=== PATIENT | male | born 1975 | race Caucasian/White ===

== ENCOUNTER 2021-12-05 07:34 | Emergency (ER) | payer OTHER, SELFPAY ==
[2021-12-05] VITALS (20 sets, daily range): BP systolic 126–147; BP diastolic 83–103; PULSE 59–77; RESP 9–23; TEMP 36.8; O2SAT 96–100
--- NOTE | ~2021-12-05 | CT_ITS ---
EXAMINATION: CT BRAIN W/O DATE: 12/05/2021 08:50 INDICATION: Confusion, dizziness. Syncope. TECHNIQUE: Computed tomography (CT) of the head was performed without intravenous contrast. The dose- length product was 605.33 mGy-cm. 605 COMPARISON: No prior studies for comparison. FINDINGS: Normal brain parenchymal volume for age. Normal hong-white differentiation. No acute intrac ranial hemorrhage, infarction, mass or mass effect. No ventriculomegaly or midline shift. Midline sagittal images demonstrate a normal corpus callosum, c raniovertebral junction and sella turcica. Basilar cisterns are patent. Paranasal sinuses and mastoids are pneumatized. No depressed skull fractures. IMPRESSION: 1. No acute intracranial abnormality. Reviewed, dictated and finalized at location A.
--- NOTE | 2021-12-05 07:49 | ECG_ITS ---
Measurements Intervals [place] Rate: 63 P: 11 ID: [id number] QRS: 40 QRSD: 102 T: 11 QT: 373 QTc: 384 Interpretive Statements SINUS RHYTHM NORMAL ECG Electronically Signed On 12-05-2021 10:58:28 CDT by Aj Osborn D.O.
[2021-12-05 07:59] LABS: Basophils Percent Auto 0.7 % (0.2-1.2); Eosinophils Absolute Auto 0.1 K/mm3 (0-0.3); Eosinophils Percent Auto 1.8 % (0-4.4); Hematocrit 51.4 % (42.0-52.0); Hemoglobin 17.2 g/dL (14.0-18.0); Immature Granulocyte Absolute 0.01 K/mm3 (0.00-0.031); Immature Granulocyte Percent A 0.2 % (0-0.5); Lymphocytes Absolute Auto 1.67 K/mm3 (0.9-3.2); Lymphocytes Percent Auto 30.9 % (18.3-44.2); Mean Corpuscular HGB Conc 33.5 g/dl (32-36); Mean Corpuscular Hemoglobin 30.9 pg (26-34); Mean Corpuscular Volume 92.4 fl (80-100); Mean Platelet Volume 9.3 fl (7.4-10.4); Monocytes Absolute Auto 0.4 K/mm3 (0.1-0.6); Neutrophils Absolute Auto 3.2 K/mm3 (1.3-6.7); Neutrophils Percent Auto 59.4 % (45.5-73.1); Platelet Count Result 253 k/mm3 (150-375); Red Blood Count 5.56 M/mm3 (4.6-6.20); Red Cell Distribution Width 12.4 % (11.5-14.5); White Blood Count 5.4 K/mm3 (4.5-10.0)
[2021-12-05 08:08] LABS: Alanine Aminotransferase 33 U/L (6-50); Albumin Level 4.2 g/dL (3.5-5.1); Alkaline Phosphatase 68 U/L (38-126); Anion Gap 6 mmol/L (8-16); Aspartate Amino Transferase 32 U/L (17-59); Bilirubin,Total 0.7 mg/dL (0.2-1.3); Blood Urea Nitrogen 14 mg/dL (9-20); Calcium 8.9 mg/dL (8.4-10.2); Carbon Dioxide 28 mmol/L (22-30); Chloride 106 mmol/L (98-107); Estimated CRCL calculation 84 ml/min; Estimated Glomerular Filt Rate > 60; Glucose 125 mg/dL (65-110); Magnesium 1.8 mg/dL (1.6-2.3); Potassium 3.7 mmol/L (3.4-5.0); Sodium 140 mmol/L (137-145)
[2021-12-05 08:15] LABS: Prothrombin Time 13.1 Seconds (11.1-14.7)
[2021-12-05 08:16] LABS: Partial Thromboplastin Time 32.7 SECONDS (22.3-36.8)
[2021-12-05 08:19] LABS: Troponin I < 0.012 ng/mL (0.000-0.034)
[2021-12-05 08:21] LABS: D Dimer 0.22 ug/mL (<0.48)
[2021-12-05] MEDS: SODIUM CHLORIDE 0.9% IV 1,000 ML 999 ML IV CONT (08:35)
[2021-12-05 08:49] LABS: Appearance Urine Clear (Clear); Bilirubin Urine Negative (Negative); Blood Urine Negative (Negative); Color Urine Yellow (Yellow); Glucose Urine UA Negative (Negative); Ketones Urine Negative (Negative); Leukocyte Esterase Ur Negative LEU/UL (Negative); Nitrate Urine Negative (Negative); Protein Urine Negative (Negative); Specific Grav Ur 1.025 (1.001-1.035); Urobilinogen Urine 0.2 mg/dL (<2.0)
[2021-12-05 08:52] LABS: Add Urine Microscopic? NO
[2021-12-05 09:03] LABS: Amphetamine Screen Urine Negative (Negative); Barbiturate Screen Urine Negative (Negative); Benzodiazepines Screen Urine Negative (Negative); Cannabinoid Screen Urine Negative (Negative); Cocaine Screen Urine Negative (Negative); Methadone Screen Urine Negative (Negative); Opiate Screen Urine Negative (Negative); Phencyclidine Screen Urine Negative (Negative)
--- NOTE | 2021-12-05 10:08 | ED.DIZZY ---
HPI - Dizziness General Chief Complaint: Dizziness Stated Complaint: syncope Time Seen by Provider: 12/05/21 07:46 Source: patient Mode of arrival: ambulatory Limitations: no limitations History of Present Illness HPI Narrative: This is a 46 year old male who presents for evaluation of dizziness . Patient reports for past 1.5 years he has been having intermittent episodes in which he is lightheaded. He reports a few months ago he had cardiac evaluation with stress test and EKG which was normal for his dizziness . 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 He states he has having jaw pain last night and headache last night. He took Tylenol so his headache resolved this morning. He states he was feeling okay this morning so he went to work. While he was at work he started to feel lightheaded. He states his boss was driving him to home and he thinks he passed out for few seconds in the car. He also states he felt foggy like he could not concentrate. He states he feels fine now. He states he has been having mild constant midsternal chest tightness since his first diagnosis of covid 1.5 years ago. He thinks he feels his heart racing. Related Data Allergies Allergy/AdvReac Type Severity Reaction Status Date / Time No Known Allergies Allergy Unknown Unverified 06/09/08 07:17 Review of Systems Review of Systems: All systems reviewed & are unremarkable except as noted in HPI and below Constitutional: Constitutional: Denies fatigue and Denies fever(s) Eyes: Eyes: Denies blurry vision ENT: Denies nasal congestion and Denies sinus pressure Cardiovascular: Cardiovascular: Denies leg edema and Denies dyspnea Respiratory: Respiratory: Denies hemoptysis and Denies dyspnea Gastrointestinal: Gastrointestinal: Denies abdominal pain and Denies melena Musculoskeletal: Musculoskeletal: Denies numbness Neurologic: Denies Abnormal speech present, Denies focal weakness and Denies numbness Endocrine: Endocrine: Denies fatigue PMFSH Surgical History Surgical History (Updated 12/05/21 @ 18:00 by Juliana Delatorre MD) H/O hernia repair Social History Social History (Updated 12/05/21 @ 18:00 by Juliana Delatorre MD) Smoking status: Never smoker Exam Narrative: GENERAL: Well-appearing, well-nourished, and in no acute distress. HEAD: Normocephalic, atraumatic EYES: PERRLA and EOMI, conjunctiva clear without discharge EARS: TM's clear bilaterally without erythema or dullness NOSE: Nares clear, no rhinorrhea or epistaxis THROAT:Mucous membranes moist, Oropharynx normal without erythema, exudate, peritonsillar swelling or fluctuance NECK: Supple, without lymphadenopathy or mass RESPIRATORY: No respiratory distress, Airway patent, Respirations non-labored, Clear to auscultation without rales, rhonchi or wheeze HEART: Regular rate and rhythm. No murmur heard. Normal peripheral pulses. ABDOMEN: Soft, nontender, nondistended, normal active bowel sounds. No masses. No rebound or guarding, No organomegaly. EXTREMITIES: No edema, normal strength with full range of motion. SKIN: Warm, dry, normal color without rash NEURO: Alert and oriented x3. CN 2-12 grossly intact. No focal deficits. PSYCH: Normal mood and affect. Neuro: Speech: No Abnormal speech present Course Reevaluation(s) Reevaluation #1: PAtient states he feels fine. Labs are normal, EKG normal. He has an episode in ER in which he felt dizzy but there was no change on court monitor. No Date: 12/05/21 Time: 10:21 Reevaluation #2: I spoke with Dr. Fields, patient's PCP . She will follow up on patient and she agrees with getting holter monitor. Date: 12/05/21 Time: 11:30 Vital Signs Vital signs: Vital Signs Pulse Rate 73 12/05/21 07:39 Respiratory Rate 19 12/05/21 07:39 Temperature 98.2 F 12/05/21 07:40 Pulse Rate 77 12/05/21 11:43 Respiratory Rat
--- NOTE | 2021-12-05 10:46 | PC.NURSE ---
cardiology contacted. will place holter monitor
--- NOTE | 2021-12-08 12:06 | WPDHOLTEREM ---
Holter/Event Monitor Holter/Event Monitor Date of procedure: 12/05/21 Holter/Event Procedure: 48 Hr Holter Monitor Indications: Syncope Conclusion: 1. 48 hour holter monitor on 12/05/21. 2. Underlying rhythm is sinus rhythm. HR range 48-136 bpm; average HR 74 bpm. 3. There are 17 premature supraventricular complexs. No supraventricular tachycardia. 4. There are 46 premature ventricular complexes and 3 ventricular trigeminy. No ventricular tachycardia. 5. No sinoatrial or atrioventricular blocks. No significant pauses greater than 2 seconds. 6. Patient reports symptoms of lightheadedness which demonstrate sinus rhythm, HR range 73-82 with one PVC.
== END 2021-12-05 11:46 | disposition home or self-care (01) ==
PROVIDERS: Emergency Provider General Practice
DX: R55 Syncope and collapse (principal); Z86.16 Personal history of COVID-19
CPT/HCPCS: 36415; 70450; 80053; 80307; 81003; 83735; 84484; 85025; 85380; 85610; 85730; 93005; 93225; 93226; 96360; 99284; J7030